=== PATIENT | male | born 1945 | race Caucasian/White ===

== ENCOUNTER 2022-08-14 16:24 | Inpatient (IN) | payer OTHER ==
[~2022-08-14] VITALS: Ht 175.3 cm; Wt 89.8 kg
[2022-08-14 16:31] VITALS: BP_SYST 136
--- NOTE | 2022-08-14 17:10 | NUR ---
Placed in room 01 . Placed on healthcare financial analyst, blood pressure machine and pulse oximeter. To gown for exam. Side rails up. Report given to FÉLIX KIRKLAND.
[2022-08-14] MEDS ORDERED: ONDANSETRON HCL 4 MG/2 ML VIAL IVP ONE (17:15)
[2022-08-14] MEDS ORDERED: ALBUTEROL SULFATE 0.083% 2.5 MG/3 ML VIAL.NEB INH ONE (17:15)
--- NOTE | 2022-08-14 17:20 | NUR ---
DR. ARREDONDO AT BEDSIDE TO ASSESS PT.
--- NOTE | 2022-08-14 17:48 | NUR ---
covid and flu swab collected and left with lab
--- NOTE | 2022-08-14 18:00 | NUR ---
RECEIVED PT FROM TRIAGE NURSE. ASSUMED CARE.
[2022-08-14] MEDS ORDERED: NACL 0.9% 2,000 ML IV ONE (18:15)
[2022-08-14 18:22] LABS: ANION GAP 14 (5-15); BASOPHILS % (AUTO) 0.3 % (0.0-2.0); CALCIUM 9.9 mg/dL (8.4-11.0); CHLORIDE 100 mmol/L (98-107); CREATININE 1.78 mg/dL (0.55-1.30); EOSINOPHILS % (AUTO) 0.4 % (0.0-4.0); GLUCOSE 181 mg/dL (70-99); HEMATOCRIT 44.5 % (36-54); HEMOGLOBIN 14.9 g/dL (14.0-18.0); LYMPHOCYTES # (AUTO) 3.7 K/uL (1.0-5.5); LYMPHOCYTES % (AUTO) 34.5 % (20.5-51.5); MEAN CORPUSCULAR HEMOGLOBIN 31 pg (27-31); MEAN CORPUSCULAR HGB CONC 34 % (32-36); MEAN CORPUSCULAR VOLUME 92 fL (79.0-98.0); MONOCYTES # (AUTO) 0.7 K/uL (0.0-1.0); MONOCYTES % (AUTO) 6.2 % (1.7-9.3); NEUTROPHILS # (AUTO) 6.3 K/uL (1.8-7.7); NEUTROPHILS % (AUTO) 58.6 % (40.0-70.0); RED BLOOD CELL COUNT(AUTO) 4.82 MIL/uL (4.2-6.2); RED CELL DISTRIBUTION WIDTH 13.9 % (9.0-15.0); UREA NITROGEN, BLOOD 20 mg/dL (8-21); WHITE BLOOD COUNT (AUTO) 10.8 K/uL (4.8-10.8)
[2022-08-14 18:23] LABS: PLATELET COUNT (AUTO) 240 K/uL (130-430)
[2022-08-14 18:24] LABS: INR 0.9 (0.80-1.20); PROTHROMBIN TIME 9.9 SECS (9.5-12.5)
[2022-08-14 18:30] LABS: ALANINE AMINOTRANSFERASE 36 U/L (12-78); ALBUMIN 3.1 g/dL (3.4-4.8); ASPARTATE AMINOTRANSFERASE 36 U/L (10-37); TOTAL BILIRUBIN 0.8 mg/dL (0.0-1.0)
[2022-08-14] MEDS ORDERED: ATEN-41 PO (18:43)
[2022-08-14] MEDS ORDERED: TRAM-545 PO (18:43)
[2022-08-14] MEDS ORDERED: AMLO5TAB4 PO (18:43)
--- NOTE | 2022-08-14 19:52 | NUR ---
Received report at this time. Pt currently on monitor. at bedside. Pt denies pain at this time.
--- NOTE | 2022-08-14 19:53 | NUR ---
ENDORSED ALL CARE TO FÉLIX FORDE.
[2022-08-14] MEDS ORDERED: cefTRIAXone 1 GM in D5W 50 ML IV ONE (23:00)
[2022-08-14] MEDS ORDERED: NACL 0.9% 1,000 ML IV ONE (23:00)
[2022-08-14] MEDS ORDERED: cefTRIAXone 1 GM VIAL ONE (23:30)
[2022-08-14] MEDS: ALPRAZolam 0.25 MG TABLET PO PRN (23:42)
--- NOTE | 2022-08-15 00:42 | NUR ---
Pt resting in bed with eyes closed. Resp even and unlabored. Pt is relaxed.
[2022-08-15 01:17] LABS: BILIRUBIN,URINE 1+ (NEGATIVE); BLOOD, URINE NEGATIVE (NEGATIVE); CLARITY/URINE CLEAR (CLEAR); COLOR,URINE YELLOW (YELLOW); GLUCOSE,URINE NEGATIVE (NEGATIVE); KETONES,URINE 1+ (NEGATIVE); LEUKOCYTE ESTERASE ,URINE NEGATIVE (NEGATIVE); NITRITE, URINE NEGATIVE (NEGATIVE); PH,URINE 5.5 (5.0-8.0); PROTEIN URINE 1+ (NEGATIVE); UROBILINOGEN,URINE 0.2 (0.2-1.0)
--- NOTE | 2022-08-15 03:05 | NUR ---
Notified admitting doctor of patient's elevated troponin of 198.
[2022-08-15] MEDS ORDERED: SERT-436 PO (03:32)
[2022-08-15] MEDS ORDERED: DONE10TA44 PO (03:32)
[2022-08-15] MEDS ORDERED: LIP40 PO (03:32)
[2022-08-15] MEDS ORDERED: XALEYE OP (03:32)
[2022-08-15] MEDS ORDERED: APIX5TAB PO (03:32)
[2022-08-15] MEDS ORDERED: GLIP10TA21 PO (03:32)
[2022-08-15] MEDS ORDERED: DORZ10DR9 EACH EYE (03:32)
[2022-08-15] MEDS ORDERED: ALPHAGANP EACH EYE (03:32)
[2022-08-15] MEDS ORDERED: PRED10TA PO (03:32)
[2022-08-15] MEDS ORDERED: HYDR25TA4 PO (03:32)
[2022-08-15] MEDS ORDERED: THIA100T70 PO (03:32)
[2022-08-15 06:50] LABS: BASOPHILS % (AUTO) 0.3 % (0.0-2.0); EOSINOPHILS % (AUTO) 0.3 % (0.0-4.0); HEMATOCRIT 37.4 % (36-54); HEMOGLOBIN 12.7 g/dL (14.0-18.0); LYMPHOCYTES # (AUTO) 2.1 K/uL (1.0-5.5); LYMPHOCYTES % (AUTO) 29.2 % (20.5-51.5); MEAN CORPUSCULAR HEMOGLOBIN 31 pg (27-31); MEAN CORPUSCULAR HGB CONC 34 % (32-36); MEAN CORPUSCULAR VOLUME 92 fL (79.0-98.0); MONOCYTES # (AUTO) 0.7 K/uL (0.0-1.0); NEUTROPHILS # (AUTO) 4.4 K/uL (1.8-7.7); NEUTROPHILS % (AUTO) 60.2 % (40.0-70.0); PLATELET COUNT (AUTO) 179 K/uL (130-430); RED BLOOD CELL COUNT(AUTO) 4.08 MIL/uL (4.2-6.2)
[2022-08-15 06:52] LABS: ANION GAP 8 (5-15); CALCIUM 8.3 mg/dL (8.4-11.0); CHLORIDE 105 mmol/L (98-107); CREATININE 1.55 mg/dL (0.55-1.30); GLUCOSE 154 mg/dL (70-99); UREA NITROGEN, BLOOD 19 mg/dL (8-21)
[2022-08-15 06:59] LABS: ALANINE AMINOTRANSFERASE 28 U/L (12-78); ALBUMIN 2.5 g/dL (3.4-4.8); ASPARTATE AMINOTRANSFERASE 31 U/L (10-37); TOTAL BILIRUBIN 0.5 mg/dL (0.0-1.0)
--- NOTE | 2022-08-15 07:20 | NUR ---
REPORT RECEIVED FROM FÉLIX FORDE FOR CONTINUING CARE
--- NOTE | 2022-08-15 07:37 | NUR ---
Admit bed requested Patient will be admitted to care of . Admitted to TELE unit. Diagnosis NSTEMI Inpatient (Yes or No) OBS Observation (Yes or No) YES Orientation concerns or request close to nursing station (Yes or No) NO Covid Status NEG On vent or bipap NO Isolation requirements NO Needs a sitter NO From Home (Yes or if No enter name of facility) HOME Requires Dialysis (Yes or No) NO Med Rec Completed (Yes of No) YES
[2022-08-15 07:55] LABS: WHITE BLOOD COUNT (AUTO) 7.3 K/uL (4.8-10.8)
--- NOTE | 2022-08-15 09:30 | NUR ---
PT SITTING UP IN RNICHOLS, AOX3, VSS, BREAKFAST TRAY PROVIDED TO PT
[2022-08-15] MEDS ORDERED: POTASSIUM CHLORIDE 20 MEQ TAB.PRT.SR PO ONE (11:45)
--- NOTE | 2022-08-15 11:59 | NUR ---
SW SON FOR STATUS UPDATE
[2022-08-15] MEDS ORDERED: ATENOLOL 25 MG TABLET(TENORMIN) PO ONE (12:00)
[2022-08-15 12:20] VITALS: BP_SYST 119
--- NOTE | 2022-08-15 12:20 | NUR ---
ADMIT NOTE Received pt from ER to the floor with a diagnosis of NSTEMI. Admission process initiated. patient oriented to pain management, safety and call light-teach back done. PATIENT VERBALIZED UNDERSTANDING
[2022-08-15 12:24] VITALS: BP_SYST 119
--- NOTE | 2022-08-15 12:26 | NUR ---
Patient will be admitted to care of DR. SOL. Admitted to TELE unit. Will go to room 107A. Belongings list completed. Complete and up to date summary report printed. SBAR report to be given at bedside with opportunity for questions.
--- NOTE | 2022-08-15 16:58 | NUR ---
SUMMARY OF CARE PATIENT IN BED WITH SON AND AT THE BEDSIDE. C/O ABDOMINAL DISCOMFORT AT THIS TIME. NO C/O NAUSEA OR VOMITING. PLAN OF CARE DISCUSSED. VERBALIZED UNDERSTANDING
[2022-08-15] MEDS: DORZOLAMIDE HCL/TIMOLOL MAL. 10 ML EYE DROPS (COSOPT) OP SCH ×2 (17:58→20:58)
[2022-08-15 19:40] VITALS: BP_SYST 120
--- NOTE | 2022-08-15 19:40 | NUR ---
PM ASSESSMENT; -Pt is a/xo4, resting in bed comfortably. Pt denies any chest pain,pain,sob,or any acute distress. IV site patent after flushed w/ ns, no s/s any infiltration. Discussed poc and all safety measures, pt verbalized understanding. bed alarmed, side rails x3,call light w/in reach. Cont to monitor pt.
--- NOTE | 2022-08-15 20:29 | NUR ---
NOTES; ELEVATED TROPONIN (TRENDING DOWN)=126 AT 19:10 -WAITING FOR MD TO CALL BACK -PT DENIES ANY CHEST PAIN,PAIN,SOB,OR ANY ACUTE DISTRESS. VSS STABLE. CONT TO MONITOR PT. Addendum: 08/15/22 at 2220 by Tariq De La Cruz, FÉLIX HEARD ADDITONAL NOTES; PAGED DR. RASMUSSEN'S EXCHANGE SPOKE TO GABRIEL REGARDING CRITICAL ELEVATED TROPONIN
[2022-08-15] MEDS: LATANOPROST 2.5 ML DROPS (XALATAN) OP SCH (20:57)
[2022-08-15] MEDS: DONEPEZIL HCL 5 MG TABLET (ARICEPT) PO SCH (20:57)
[2022-08-15] MEDS: BRIMONIDINE TARTRATE 0.2% 5 mL EYE DROPS EACH EYE SCH (20:57)
[2022-08-15] MEDS: APIXABAN 2.5 MG TABLET PO SCH (20:57)
[2022-08-15] MEDS: INSULIN REGULAR, HUMAN 100 UNITS/ML, 3 ML VIAL (humuLIN R) SUBCUT PRN (21:01)
[2022-08-15 22:00] VITALS: BP_SYST 129
--- NOTE | 2022-08-15 22:18 | NUR ---
NOTES; PAGED DR. VALERY MEI, SPOKE WITH GOGO REGARDING CRITICAL LAB, ELEVATED TROPONIN (TRENDING DOWN)=126 AT 19:10. PT DENIES ANY CHEST PAIN,PAIN,SOB,OR ANY ACUTE DISTRESS. -WAITING FOR MD TO CALL BACK
--- NOTE | 2022-08-15 22:25 | NUR ---
NOTES; -SPOKE WITH VALERY REGARDING CRITICAL LAB, ELEVATED TROPONIN (TRENDING DOWN)=126 AT 19:10. NO FURTHER ORDER PER MD. Addendum: 08/15/22 at 2251 by Tariq De La Cruz RN RN NOTES; SPOKE WITH DR. SOL REGARDING AD-SON REQUESTS SOME MEDICATION FOR THINNING HIS FATHER'S THROAT AND MOUTH, ORDERED MUCOMYST INHAL BID PRN
[2022-08-15] MEDS: ALPRAZolam 0.25 MG TABLET PO PRN (23:01)
[2022-08-16] VITALS: BP_SYST 129
--- NOTE | 2022-08-16 01:50 | NUR ---
ROUNDS; -Pt is asleep. No s/s any pain,sob,or any acute distress noted. All side railsx3, Bed alarmed, side rails x3, call light w/in reach. Cont to monitor pt.
[2022-08-16] MEDS: IPRATROPIUM/ALBUTEROL SULFATE 3 ML AMPUL.NEB (DUONEB) INH SCH ×7 (02:50→23:39)
--- NOTE | 2022-08-16 06:49 | NUR ---
CLOSING NOTES; -Pt is asleep. No s/s any pain,sob,or any acute distress noted. All side railsx3, Bed alarmed, side rails x3, call light w/in reach. pt's condition stable. Will endorse to next nurse to cont care.
[2022-08-16 07:53] LABS: ANION GAP 2 (5-15); CALCIUM 8.4 mg/dL (8.4-11.0); CHLORIDE 107 mmol/L (98-107); CREATININE 1.19 mg/dL (0.55-1.30); GLUCOSE 137 mg/dL (70-99); UREA NITROGEN, BLOOD 12 mg/dL (8-21)
[2022-08-16 08:08] LABS: ALANINE AMINOTRANSFERASE 25 U/L (12-78); ALBUMIN 2.4 g/dL (3.4-4.8); ASPARTATE AMINOTRANSFERASE 34 U/L (10-37); LIPASE 178 U/L (73-393); THYROID STIMULATING HORMONE 0.75 uIu/mL (0.36-3.74); TOTAL BILIRUBIN 0.6 mg/dL (0.0-1.0)
[2022-08-16 08:12] VITALS: BP_SYST 116
[2022-08-16 08:26] LABS: BASOPHILS % (AUTO) 0.2 % (0.0-2.0); EOSINOPHILS # (AUTO) 0.1 K/uL (0.0-0.4); EOSINOPHILS % (AUTO) 1.3 % (0.0-4.0); LYMPHOCYTES # (AUTO) 1.5 K/uL (1.0-5.5); LYMPHOCYTES % (AUTO) 26.1 % (20.5-51.5); MEAN CORPUSCULAR HEMOGLOBIN 31 pg (27-31); MEAN CORPUSCULAR HGB CONC 34 % (32-36); MEAN CORPUSCULAR VOLUME 92 fL (79.0-98.0); MONOCYTES # (AUTO) 0.5 K/uL (0.0-1.0); MONOCYTES % (AUTO) 9.1 % (1.7-9.3); NEUTROPHILS # (AUTO) 3.6 K/uL (1.8-7.7); NEUTROPHILS % (AUTO) 63.3 % (40.0-70.0); PLATELET COUNT (AUTO) 187 K/uL (130-430); RED CELL DISTRIBUTION WIDTH 14.2 % (9.0-15.0); WHITE BLOOD COUNT (AUTO) 5.8 K/uL (4.8-10.8)
--- NOTE | 2022-08-16 08:39 | NUR ---
RECEIVED PT FROM FÉLIX CROWDER. ASSUMED CARE.
--- NOTE | 2022-08-16 10:13 | NUR ---
DR. RASMUSSEN MADE AWARE PT'S K= 3.3. HE STATED HE WILL REPLACE IT.
[2022-08-16] MEDS: BRIMONIDINE TARTRATE 0.2% 5 mL EYE DROPS EACH EYE SCH ×2 (10:14→21:40)
[2022-08-16] MEDS: DORZOLAMIDE HCL/TIMOLOL MAL. 10 ML EYE DROPS (COSOPT) OP SCH ×3 (10:15→21:40)
[2022-08-16] MEDS: APIXABAN 2.5 MG TABLET PO SCH ×2 (10:17→21:45)
[2022-08-16] MEDS: ATORVASTATIN 20 MG TABLET PO SCH (10:18)
[2022-08-16] MEDS: amLODIPine BESYLATE 5 MG TABLET PO SCH (10:19)
[2022-08-16] MEDS: SERTRALINE HCL 50 MG TABLET PO SCH (10:21)
[2022-08-16] MEDS: ATENOLOL 25 MG TABLET(TENORMIN) PO SCH (10:21)
--- NOTE | 2022-08-16 10:21 | NUR ---
SCHEDULED MEDS GIVEN AND TOLERATED WELL.
[2022-08-16 11:17] VITALS: BP_SYST 125
[2022-08-16] MEDS: INSULIN REGULAR, HUMAN 100 UNITS/ML, 3 ML VIAL (humuLIN R) SUBCUT PRN ×3 (14:06→21:44)
[2022-08-16 15:28] VITALS: BP_SYST 113
--- NOTE | 2022-08-16 15:31 | NUR ---
PT HAD LARGE SOFT BM. PT CHANGED AND GIVEN PARITAL BED BATH, GOWN AND LINEN CHANGE. SCHEDULED MED GIVEN AND TOLERATED WELL. PT DENIES PAIN. CALL LIGHT WITHIN REACH. BED IN LOWEST POSITION. FAMILY AT BEDSIDE. BED ALARM ON.
--- NOTE | 2022-08-16 17:55 | NUR ---
blood sugar 179 2 units reg insulin given to CANDY. niya
[2022-08-16 19:00] VITALS: BP_SYST 116
--- NOTE | 2022-08-16 19:13 | NUR ---
ENDORSED ALL CARE TO FÉLIX STROUD. ALL QUESTIONS AND CONCERNS ADDRESSED.
--- NOTE | 2022-08-16 19:15 | NUR ---
change of shift.pt.presents quiescent affect;language barrier extent;nepali pt's primary language.activity status bedrest. pt.presents iv access location rt.hand intact iv lock status.no c/o pain,nausea.pt.capable to reposition self.call light/telephone w/in access of the pt.
[2022-08-16 20:00] VITALS: BP_SYST 116
--- NOTE | 2022-08-16 20:00 | NUR ---
pt.assessed.v/s assessed values wnl.no c/o pain,nausea.iv access intact.pt.apprised that snacks/beverages are available w/in the shift,.no requests posited@this hour.pt.assessed for cleanliness.pt.repositioned.call light/telephone placed w/in access of the pt.
[2022-08-16] MEDS: ALPRAZolam 0.25 MG TABLET PO PRN (20:17)
--- NOTE | 2022-08-16 20:30 | NUR ---
blood glucose assessed value;218mg/dl.
--- NOTE | 2022-08-16 21:00 | NUR ---
2100p medications administered.pt.capable to ingest the po medications w/out difficulty.eye gtts x3 medications administered.insulin;regular:4-u administered per sliding scale.call light/telephone placed w/in access of the pt.
[2022-08-16] MEDS: LATANOPROST 2.5 ML DROPS (XALATAN) OP SCH (21:40)
[2022-08-16] MEDS: DONEPEZIL HCL 5 MG TABLET (ARICEPT) PO SCH (21:41)
--- NOTE | 2022-08-16 22:00 | NUR ---
pt assessed.pt.quiescent.per flacc pain mgx pt.absent facial grimaces/body posturing.pt.assessed for cleanliness. pt.repositioned.call light/telephone placed w/in access of the pt.
[2022-08-17] VITALS: BP_SYST 112
--- NOTE | 2022-08-17 | NUR ---
pt.assessed.v/s assessed values wnl.no c/o pain,nausea.pt.requested snack;yogurt provided.pt.access for cleanliness. pt.repositioned.call light/telephone placed w/in access of the pt.
--- NOTE | 2022-08-17 02:00 | NUR ---
pt.assessed.pt.quiescent.per flacc pain mgx pt.absent facial grimaces/body posturing.pt.assessed for cleanliness. pt.repositioned.call light/telephone placed w/in access of the pt.
[2022-08-17] MEDS: IPRATROPIUM/ALBUTEROL SULFATE 3 ML AMPUL.NEB (DUONEB) INH SCH ×6 (03:39→23:15)
--- NOTE | 2022-08-17 04:00 | NUR ---
pt.assessed.pt.quiescent.no c/o pain,nausea.pt.assessed for cleanliness.pt.repositioned.call light/telephone placed w/in access of the pt.
--- NOTE | 2022-08-17 06:14 | NUR ---
pt.assessed.blood glucose assessed value;133mg/dl.no c/o pain,nausea.pt.repositioned.call light/telephone placed w/in access of the pt.
[2022-08-17] MEDS: amLODIPine BESYLATE 5 MG TABLET PO SCH (09:00)
[2022-08-17] MEDS: ATENOLOL 25 MG TABLET(TENORMIN) PO SCH (10:18)
[2022-08-17] MEDS: ATORVASTATIN 20 MG TABLET PO SCH (10:18)
[2022-08-17] MEDS: APIXABAN 2.5 MG TABLET PO SCH ×2 (10:21→20:39)
[2022-08-17] MEDS: BRIMONIDINE TARTRATE 0.2% 5 mL EYE DROPS EACH EYE SCH ×2 (10:21→20:42)
[2022-08-17] MEDS: DORZOLAMIDE HCL/TIMOLOL MAL. 10 ML EYE DROPS (COSOPT) OP SCH ×3 (10:21→20:41)
[2022-08-17] MEDS: SERTRALINE HCL 50 MG TABLET PO SCH (10:22)
--- NOTE | 2022-08-17 10:30 | NUR ---
MULTIPLE PHONE CALLS FROM SON, MULTIPLE UPDATES PROVIDED REGARDING PATIENTS CONDITION
[2022-08-17 11:33] VITALS: BP_SYST 124
[2022-08-17] MEDS: INSULIN REGULAR, HUMAN 100 UNITS/ML, 3 ML VIAL (humuLIN R) SUBCUT PRN ×2 (12:30→20:53)
--- NOTE | 2022-08-17 13:00 | NUR ---
K+ 3.2, ORDER FOR PO KT OBTAINED FROM DR EBENEZER MD ALSO REQUEST PT EVAL, ENTERED
--- NOTE | 2022-08-17 14:27 | NUR ---
Discharge Planning: DCP faxed pt referral to [facility] [phone], [facility] [phone], Halley Ge [phone] DCP to follow up
[2022-08-17 15:37] VITALS: BP_SYST 117
[2022-08-17] MEDS ORDERED: POTASSIUM CHLORIDE 20 MEQ/PKT PACKET PO ONE (16:00)
--- NOTE | 2022-08-17 18:31 | NUR ---
COCCYX VISUALIZED DURING BEDDING CHANGE, REDNESS OBSERVED, REPOSITIONED
[2022-08-17] MEDS: ACETYLCYSTEINE 10% 4 ML VIAL (RT) INH SCH (19:34)
[2022-08-17 20:00] VITALS: BP_SYST 116
[2022-08-17] MEDS: DONEPEZIL HCL 5 MG TABLET (ARICEPT) PO SCH (20:37)
[2022-08-17] MEDS: ALPRAZolam 0.25 MG TABLET PO PRN (20:38)
[2022-08-17] MEDS: LATANOPROST 2.5 ML DROPS (XALATAN) OP SCH (20:41)
--- NOTE | 2022-08-17 23:47 | NUR ---
1999 OPENING NOTES: Patient received from AM shift nurse. Patient is Awake with family at bed side no s/s of distress is noted at this time. Chest rise is even and unlabored and chest rise is even and unlabored. Patient was assessed at this time and is stable at this time, safety measures are in place as per protocol, will resume care for continuity of care and continue to monitor throughout shift. 2200 Patient received evening medications as ordered and also request PRN alprazolam for anxiety and was administered as ordered. Lashaun care was provided and barrier cream was applied as ordered and patient as been turned to prevent skin breakdown. Will continue to monitor. 0 Patient is in bed resting no s/s pf distress is noted at this time. Will continue to monitor.
[2022-08-18 01:20] VITALS: BP_SYST 125
[2022-08-18] MEDS: IPRATROPIUM/ALBUTEROL SULFATE 3 ML AMPUL.NEB (DUONEB) INH SCH ×6 (03:04→23:10)
[2022-08-18] MEDS: DOXYCYCLINE HYCLATE 100 MG CAPSULE PO SCH ×2 (06:18→21:43)
--- NOTE | 2022-08-18 06:49 | NUR ---
CLOSING NOTES: Patient is in bed resting no s/s of distress is noted at this time. Chest rise is even and unlabored on RA. All current shift needs have been met at this time, patient is stable, all current shift needs have been met and safety measures are in place as per protocol. Will differ care to AM shift nurse for continuity of care.
[2022-08-18] MEDS: ACETYLCYSTEINE 10% 4 ML VIAL (RT) INH SCH (07:25)
[2022-08-18 08:27] VITALS: BP_SYST 125
[2022-08-18 08:41] VITALS: BP_SYST 127
[2022-08-18] MEDS: ATORVASTATIN 20 MG TABLET PO SCH (10:28)
[2022-08-18] MEDS: amLODIPine BESYLATE 5 MG TABLET PO SCH (10:29)
[2022-08-18] MEDS: APIXABAN 2.5 MG TABLET PO SCH ×2 (10:30→21:48)
[2022-08-18] MEDS: SERTRALINE HCL 50 MG TABLET PO SCH (10:30)
[2022-08-18] MEDS: BRIMONIDINE TARTRATE 0.2% 5 mL EYE DROPS EACH EYE SCH ×2 (10:31→21:42)
[2022-08-18] MEDS: ATENOLOL 25 MG TABLET(TENORMIN) PO SCH (10:31)
[2022-08-18] MEDS: DORZOLAMIDE HCL/TIMOLOL MAL. 10 ML EYE DROPS (COSOPT) OP SCH ×3 (10:31→21:47)
[2022-08-18 11:42] VITALS: BP_SYST 131
[2022-08-18] MEDS: INSULIN REGULAR, HUMAN 100 UNITS/ML, 3 ML VIAL (humuLIN R) SUBCUT PRN ×3 (11:53→21:49)
--- NOTE | 2022-08-18 12:10 | NUR ---
CONSULTATION PAGED REASON FOR CONSULTATION ALTERED LEVEL OF CONSCIOUSNESS WAS CONSULT CALED?Y PERSON WHO WAS NOTIFIED:TEXT MESSAGED JOVANNY JEAN BAPTISTE CONSULTING PHYSICIAN:JOVANNY JEAN BAPTISTE NETWORK COORDINATOR SPECIALTY:NEURO NETWORK COORDINATOR PHONE NUMBER:[phone] REQUESTING PHYSICIAN:KARLENE RICCI
--- NOTE | 2022-08-18 13:50 | NUR ---
Dietitian Recommendations * Continue consistent CHO diet. Consider adding renal standard if intakes improve * Consider wound supplements: MVI, 250 mg VIT C, Ramon BID * Consider 220mg ZnSO4 x 14 days for wound healing * Consider Glucerna (chocolate flavor) BID to assist meeting needs GS, MPH, RD Please refer to RD Assessment for further details Addendum: 08/18/22 at [address] Amended: Links added.
[2022-08-18 15:54] VITALS: BP_SYST 116
--- NOTE | 2022-08-18 17:02 | NUR ---
ROUNDS LATE ENTRY DUE TO PATIENT CARE 0740- AWAKE IN BED. DOES NOT APPEAR TO BE N DISTREAA. HOB ELEVATED FOR BREAKFAST. ASPIRATION PRECAUTION. 10:00 - VENOUS DOPPLER DONE 1100- AND DAUGHTER AT BEDSIDE. PLAN OF CARE DISCUSSED WITH PATIENT AND FAMILY, ALL VERBALIZED UNDERSTANDING 1600- PATIENT APPEARS COMFORTABLE
--- NOTE | 2022-08-18 19:23 | NUR ---
closing still waiting for Dr Roman to see patients.
[2022-08-18 20:00] VITALS: BP_SYST 138
--- NOTE | 2022-08-18 20:01 | NUR ---
OPENING NOTES: Patient received from AM shift nurse Kim. Patient is AA&Ox3 with no s/s of distress at this time and has call light within reach. Chest rise is even and unlabored on RA. Patient has been assessed at this time as per protocol. Patient updated on his plan of care, IV site is clean, dry, intact and is flushing. Patient is stable at this time, and safety measures are in place as per protocol. Will resume care and continue to monitor throughout the shift.
[2022-08-18] MEDS: ALPRAZolam 0.25 MG TABLET PO PRN (21:43)
[2022-08-18] MEDS: DONEPEZIL HCL 5 MG TABLET (ARICEPT) PO SCH (21:43)
[2022-08-18] MEDS: LATANOPROST 2.5 ML DROPS (XALATAN) OP SCH (21:46)
[2022-08-19 00:23] VITALS: BP_SYST 105
[2022-08-19] MEDS: IPRATROPIUM/ALBUTEROL SULFATE 3 ML AMPUL.NEB (DUONEB) INH SCH ×6 (03:13→23:30)
--- NOTE | 2022-08-19 06:38 | NUR ---
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
[2022-08-19 06:39] LABS: ANION GAP 6 (5-15); CHLORIDE 107 mmol/L (98-107); CREATININE 1.03 mg/dL (0.55-1.30); GLUCOSE 147 mg/dL (70-99); UREA NITROGEN, BLOOD 10 mg/dL (8-21)
[2022-08-19 07:46] LABS: BASOPHILS % (AUTO) 0.3 % (0.0-2.0); EOSINOPHILS # (AUTO) 0.1 K/uL (0.0-0.4); EOSINOPHILS % (AUTO) 1.8 % (0.0-4.0); HEMATOCRIT 35.1 % (36-54); HEMOGLOBIN 11.9 g/dL (14.0-18.0); LYMPHOCYTES # (AUTO) 1.6 K/uL (1.0-5.5); LYMPHOCYTES % (AUTO) 32.5 % (20.5-51.5); MEAN CORPUSCULAR HEMOGLOBIN 31 pg (27-31); MEAN CORPUSCULAR HGB CONC 34 % (32-36); MEAN CORPUSCULAR VOLUME 92 fL (79.0-98.0); MONOCYTES # (AUTO) 0.4 K/uL (0.0-1.0); NEUTROPHILS # (AUTO) 2.8 K/uL (1.8-7.7); NEUTROPHILS % (AUTO) 57.4 % (40.0-70.0); PLATELET COUNT (AUTO) 203 K/uL (130-430); RED BLOOD CELL COUNT(AUTO) 3.84 MIL/uL (4.2-6.2); WHITE BLOOD COUNT (AUTO) 4.9 K/uL (4.8-10.8)
[2022-08-19 08:00] VITALS: BP_SYST 126
[2022-08-19] MEDS: SERTRALINE HCL 50 MG TABLET PO SCH (08:08)
[2022-08-19] MEDS: ATORVASTATIN 20 MG TABLET PO SCH (08:08)
[2022-08-19] MEDS: amLODIPine BESYLATE 5 MG TABLET PO SCH (08:09)
[2022-08-19] MEDS: ATENOLOL 25 MG TABLET(TENORMIN) PO SCH (08:10)
[2022-08-19] MEDS: DOXYCYCLINE HYCLATE 100 MG CAPSULE PO SCH ×2 (08:10→20:39)
[2022-08-19] MEDS: APIXABAN 2.5 MG TABLET PO SCH ×2 (08:10→20:40)
[2022-08-19] MEDS: BRIMONIDINE TARTRATE 0.2% 5 mL EYE DROPS EACH EYE SCH ×2 (08:12→20:41)
[2022-08-19] MEDS: DORZOLAMIDE HCL/TIMOLOL MAL. 10 ML EYE DROPS (COSOPT) OP SCH ×3 (08:12→20:40)
[2022-08-19] MEDS: ALPRAZolam 0.25 MG TABLET PO PRN (10:29)
--- NOTE | 2022-08-19 10:46 | NUR ---
Discharge Planning: DCP followed up with [facility] Berumen [phone] Tammy at [phone] does not feel SNF is needed. DCP faxed updated clinicals and PT note to Tammy Hooks#[phone].
[2022-08-19 15:31] VITALS: BP_SYST 144
--- NOTE | 2022-08-19 19:05 | NUR ---
CLOSING NOTE Patient in bed resting, no sign of distress and patient denies pain. Patient has been cooperative with his care throughout the shift. Breathing is nonlabored and even on room air. Patient has been updated on his plan of care. All needs met at this time and safety checks made. Endorsed to mine shifter nurse.
[2022-08-19 20:00] VITALS: BP_SYST 117
--- NOTE | 2022-08-19 20:18 | NUR ---
pt son called. pt son Ruddy c/o hes not being updated on pt care. would like mds to call him and update him on plan of care and pt status. will endorse to day rn.
[2022-08-19] MEDS: DONEPEZIL HCL 5 MG TABLET (ARICEPT) PO SCH (20:39)
[2022-08-19] MEDS: LATANOPROST 2.5 ML DROPS (XALATAN) OP SCH (20:41)
[2022-08-20 01:01] VITALS: BP_SYST 121
[2022-08-20] MEDS: IPRATROPIUM/ALBUTEROL SULFATE 3 ML AMPUL.NEB (DUONEB) INH SCH ×5 (03:05→20:19)
--- NOTE | 2022-08-20 07:15 | NUR ---
OPENING NOTE Patient sleeping calmly in bed at this time. No s/s of pain or discomfort. IV site intact, clean, and dry. Call light within reach. All safety precautions observed.
[2022-08-20 08:07] VITALS: BP_SYST 121
[2022-08-20] MEDS: ATORVASTATIN 20 MG TABLET PO SCH (09:28)
[2022-08-20] MEDS: SERTRALINE HCL 50 MG TABLET PO SCH (09:28)
[2022-08-20] MEDS: ATENOLOL 25 MG TABLET(TENORMIN) PO SCH (09:30)
[2022-08-20] MEDS: DOXYCYCLINE HYCLATE 100 MG CAPSULE PO SCH ×2 (09:31→20:19)
[2022-08-20] MEDS: amLODIPine BESYLATE 5 MG TABLET PO SCH (09:31)
[2022-08-20] MEDS: APIXABAN 2.5 MG TABLET PO SCH ×2 (09:33→20:19)
[2022-08-20 11:27] VITALS: BP_SYST 129
[2022-08-20] MEDS: BRIMONIDINE TARTRATE 0.2% 5 mL EYE DROPS EACH EYE SCH ×2 (11:28→20:20)
[2022-08-20] MEDS: DORZOLAMIDE HCL/TIMOLOL MAL. 10 ML EYE DROPS (COSOPT) OP SCH ×3 (11:30→20:20)
--- NOTE | 2022-08-20 13:59 | NUR ---
CM: Per [facility] given bed # 109C, report # Per Tammy, [facility], gave ambulance auth to [facility], [facility] transfer auth # [id number]. Tammy will send the hard copy to [facility]. Booked ambulance with Kevin Hidalgo, will place on Will Call status until she receives the hard copy auth. AVANI to call back in 30 mins to activate the ride. -- FÉLIX Solis made aware. Addendum: 08/20/22 at 1712 by Heidy Iqbal RN Error by Jennifer/Richar snf: She placed pt on [facility] without notified anyone. We found out when RN gave report to snf and was told that the facility name is [facility]. I spoke with Edna/[facility] and Judy/[facility], need to change auth for [facility] and [facility] ambulance. I spoke with son Ruddy re changing the nursing facility. He agreed with the change. Per Edna, needs to get auth before taking pt. Edna is talking to Judy at this time. Addendum: 08/20/22 at 1758 by Heidy Iqbal RN Per Edna: she got auth for [facility] and son/Ruddy agreed with the transfer. The patient is ok to transfer today. Dr Wilson is accepting md at [facility]. -- Félix Solis made aware and he will recall the ambulance.
[2022-08-20 15:30] VITALS: BP_SYST 107
--- NOTE | 2022-08-20 15:30 | NUR ---
GAVE REPORT TO SNF Gave report to FÉLIX Goff at [facility] in [place]. Was told by case management that patient would go to [facility]. Case management was informed of this discrepancy.
[2022-08-20 16:00] VITALS: BP_SYST 107
[2022-08-20] MEDS ORDERED: DOXY100C PO (16:00)
--- NOTE | 2022-08-20 16:24 | NUR ---
CHANGED TO WILL CALL Spoke to [facility] dispatch. Changed patient to will call Addendum: 08/20/22 at 1626 by Demarcus Jones RN Per field nurse case manager. No authorization to [facility].
--- NOTE | 2022-08-20 18:03 | NUR ---
CALLED AMBULANCE Spoke to Luis Manuel at [facility]. Patient will be transported to [facility] Rm 109C. Pickup time is at 2100.
--- NOTE | 2022-08-20 18:47 | NUR ---
CLOSING NOTE Patient in bed, sitting up, alert and oriented, eating dinner at this time. He denies pain or discomfort. at bedside. Call light within reach. Safety precautions observed. at bedside. Will endorse upcoming discharge to night RN.
[2022-08-20 20:00] VITALS: BP_SYST 124
[2022-08-20] MEDS: ALPRAZolam 0.25 MG TABLET PO PRN (20:19)
[2022-08-20] MEDS: DONEPEZIL HCL 5 MG TABLET (ARICEPT) PO SCH (20:19)
[2022-08-20] MEDS: LATANOPROST 2.5 ML DROPS (XALATAN) OP SCH ×2 (20:36→20:41)
--- NOTE | 2022-08-20 21:30 | NUR ---
PT TRANSFERRED TO [facility] VIA BLS TRANSPORT. PT FAMILY AT BEDSIDE. UPDATED NURSE MICHAEL AT [facility] ON PT AND PT LEAVING DAVID. ALL QUESTIONS ANSWERED. NOTIFIED SAMANTHA THAT PT RECEIVED ALL NIGHT TIME MEDS. FAMILY TOOK ALL BELONGINGS. ALL NEEDS MEET AT THIS TIME.
== END 2022-08-20 21:40 | DRG 871 ==
LOC: SED 16:24 → SMU 22:00 → STU 08-15 11:36
PROVIDERS: ADMIT Internal Medicine; ATTEND Internal Medicine
DX: A41.9 Sepsis, unspecified organism (principal); E43 Unspecified severe protein-calorie malnutrition; G93.41 Metabolic encephalopathy; N18.6 End stage renal disease; E87.20 Acidosis, unspecified; I12.0 Hypertensive chronic kidney disease with stage 5 chronic kidney disease or end stage renal disease; L03.116 Cellulitis of left lower limb; I95.9 Hypotension, unspecified; I25.10 Atherosclerotic heart disease of native coronary artery without angina pectoris; E87.6 Hypokalemia; F03.A0 Unspecified dementia, mild, without behavioral disturbance, psychotic disturbance, mood disturbance, and anxiety; E11.42 Type 2 diabetes mellitus with diabetic polyneuropathy; E11.65 Type 2 diabetes mellitus with hyperglycemia; E78.00 Pure hypercholesterolemia, unspecified; G62.9 Polyneuropathy, unspecified; Z20.822 Contact with and (suspected) exposure to COVID-19; E11.22 Type 2 diabetes mellitus with diabetic chronic kidney disease; Z74.01 Bed confinement status; Z86.73 Personal history of transient ischemic attack (TIA), and cerebral infarction without residual deficits; Z88.6 Allergy status to analgesic agent; Z88.8 Allergy status to other drugs, medicaments and biological substances; Z79.899 Other long term (current) drug therapy; Z90.49 Acquired absence of other specified parts of digestive tract; Z87.891 Personal history of nicotine dependence; Z86.718 Personal history of other venous thrombosis and embolism
CPT/HCPCS: 36415; 70551; 71045; 76376; 80048; 80053; 81003; 82962; 83036; 83605; 83690; 83735; 83880; 84443; 84484; 85025; 85610-TC; 85730-TC; 87040; 87086; 93005; 93306; 93923; 94640; 94760; 96365; 96375; 97116-GP; 97163-GP; 97530-GP; 99291; 99292; G0378; J0696; J2405; J7060; J7608; J7613